=== PATIENT | female | born 1965 | race Caucasian/White ===

== ENCOUNTER 2023-04-25 08:01 | Outpatient (CLI) | payer BC, SELFPAY | END 2023-04-25 08:02 | disposition home or self-care (01) | LOC: NFLDREF 04-28 00:16 | PROVIDERS: PCP Family Medicine; Referring Provider Family Medicine; Visit Provider Family Medicine | DX: Z00.00 Encounter for general adult medical examination without abnormal findings (principal); E66.9 Obesity, unspecified; Z13.6 Encounter for screening for cardiovascular disorders | CPT/HCPCS: 80053; 80061 ==

== ENCOUNTER 2023-05-05 15:17 | Outpatient (CLI) | payer BC, SELFPAY ==
--- NOTE | 2023-05-05 16:00 | CRLHL7_ITS ---
For Patients: As a result of the Century Cures Act, medical imaging exams and procedure reports are released immediately into your electronic medical record. You may view this report before your referring provider. If you have questions, please contact your health care provider. INDICATION: Lung cancer screening. TECHNIQUE: Low-dose lung cancer screening non-contrast CT chest. Dose reduction techniques were used. COMPARISON: CT 06/11/2021 FINDINGS: NODULES: None. LUNGS AND PLEURA: Right lower lobe granuloma. MEDIASTINUM: Calcified mediastinal hilar lymph nodes. CORONARY ARTERY CALCIFICATION: Present. LIMITED UPPER ABDOMEN: Normal. MUSCULOSKELETAL: Normal. IMPRESSION: 1. Negative for lung cancer screening purposes. LUNG-RADS CATEGORY: 1: Negative. Continue annual screening with low-dose CT chest in 12 months. Please note that all CT scans at this facility use dose modulation, iterative reconstruction, and/or weight-based dosing when appropriate to reduce radiation dose to as low as reasonably achievable. Dictated by Lori Hinds MD @ 05/08/2023 6:36:02 PM (Electronically Signed)
== END 2023-05-05 15:18 | disposition home or self-care (01) ==
LOC: CT 15:18
PROVIDERS: PCP Family Medicine; Visit Provider Family Medicine
DX: Z12.2 Encounter for screening for malignant neoplasm of respiratory organs (principal); J44.9 Chronic obstructive pulmonary disease, unspecified; Z72.0 Tobacco use
CPT/HCPCS: 71271

== ENCOUNTER 2023-07-27 14:48 | Outpatient (CLI) | payer BC, SELFPAY ==
--- NOTE | 2023-07-27 15:20 | CRLHL7_ITS ---
For Patients: As a result of the Century Cures Act, medical imaging exams and procedure reports are released immediately into your electronic medical record. You may view this report before your referring provider. If you have questions, please contact your health care provider. BILATERAL SCREENING MAMMOGRAM WITH COMPUTER-AIDED DETECTION TECHNIQUE: CC and MLO views were obtained. These mammographic images have been obtained using full-field digital technique. These mammographic images were interpreted with the benefit of computer-aided detection. COMPARISON FILM: 08/27/19, 06/01/18, 06/04/16. FINDINGS: There are scattered areas of fibroglandular density. IMPRESSION: There is no radiographic evidence for malignancy. ASSESSMENT: BI-RADS Category 1: Negative RECOMMENDATION: Routine screening mammogram in 1 year. A lay language report of this examination will be provided to the patient. Bro Pan M.D. Diagnostic Radiologist [email or web address] SP/Dictated by: Bro Pan MD @ 07/28/2023 11:23:00 AM (Electronically Signed)
== END 2023-07-27 14:49 | disposition home or self-care (01) ==
LOC: MAMMO 14:49
PROVIDERS: PCP Family Medicine; Visit Provider Family Medicine
DX: Z12.31 Encounter for screening mammogram for malignant neoplasm of breast (principal)
CPT/HCPCS: 77067

== ENCOUNTER 2024-05-07 15:37 | Outpatient (CLI) | payer BC, SELFPAY ==
--- NOTE | 2024-05-07 16:00 | CRLHL7_ITS ---
For Patients: As a result of the Century Cures Act, medical imaging exams and procedure reports are released immediately into your electronic medical record. You may view this report before your referring provider. If you have questions, please contact your health care provider. INDICATION: Lung cancer screening. TECHNIQUE: Low-dose lung cancer screening non-contrast CT chest. Dose reduction techniques were used. COMPARISON: CT 05/05/2023 FINDINGS: NODULES: None. LUNGS AND PLEURA: Right lower lobe granuloma. MEDIASTINUM: Nodes. Calcified mediastinal and hilar lymph CORONARY ARTERY CALCIFICATION: Present. LIMITED UPPER ABDOMEN: Normal. MUSCULOSKELETAL: Normal. IMPRESSION: 1. Negative for lung cancer screening purposes. LUNG-RADS CATEGORY: 1: Negative. RADIOLOGIST RECOMMENDATION: Continue annual screening with low-dose CT chest in 12 months. Please note that all CT scans at this facility use dose modulation, iterative reconstruction, and/or weight-based dosing when appropriate to reduce radiation dose to as low as reasonably achievable. Dictated by Lori Hinds MD @ 05/08/2024 10:49:12 AM (Electronically Signed)
== END 2024-05-07 15:38 | disposition home or self-care (01) ==
LOC: CT 15:38
PROVIDERS: PCP Family Medicine; Visit Provider Family Medicine
DX: Z12.2 Encounter for screening for malignant neoplasm of respiratory organs (principal); Z87.891 Personal history of nicotine dependence
CPT/HCPCS: 71271

== ENCOUNTER 2024-09-21 14:45 | Outpatient (CLI) | payer BC, SELFPAY | END 2024-09-21 14:46 | disposition home or self-care (01) | PROVIDERS: PCP Family Medicine; Visit Provider Family Medicine | DX: J44.1 Chronic obstructive pulmonary disease with (acute) exacerbation (principal); J32.9 Chronic sinusitis, unspecified | CPT/HCPCS: 80053 ==

== ENCOUNTER 2025-02-12 07:47 | Outpatient (CLI) | payer BC, SELFPAY ==
--- NOTE | 2025-02-12 08:15 | CRLHL7_ITS ---
For Patients: As a result of the Century Cures Act, medical imaging exams and procedure reports are released immediately into your electronic medical record. You may view this report before your referring provider. If you have questions, please contact your health care provider. INDICATION: BILATERAL SCREENING MAMMOGRAM, ASYMPTOMATIC 59 Y/O FEMALE COMPARISON: 07/27/2023, 08/27/2019, 06/01/2018 TECHNIQUE: Digital mammogram in CC and MLO projections including computer-aided detection (CAD) and tomosynthesis. BREAST COMPOSITION: There are scattered areas of fibroglandular density. FINDINGS: No suspicious findings. ASSESSMENT: BI-RADS 1 Negative RECOMMENDATION: Annual screening mammogram. A lay language report of this examination will be provided to the patient. Dictated by: Brittany Hart MD @ 02/12/2025 11:28:32 (Electronically Signed)
== END 2025-02-12 07:48 | disposition home or self-care (01) ==
LOC: MAMMO 07:48
PROVIDERS: PCP Family Medicine; Visit Provider Family Medicine
DX: Z12.31 Encounter for screening mammogram for malignant neoplasm of breast (principal)
CPT/HCPCS: 77063; 77067

== ENCOUNTER 2025-05-13 16:26 | Outpatient (CLI) | payer BC, SELFPAY ==
--- NOTE | 2025-05-13 16:45 | CRLHL7_ITS ---
For Patients: As a result of the Century Cures Act, medical imaging exams and procedure reports are released immediately into your electronic medical record. You may view this report before your referring provider. If you have questions, please contact your health care provider. INDICATION: Lung cancer screening. History of smoking. High risk patient. TECHNIQUE: Low-dose lung cancer screening non-contrast CT chest. Dose reduction techniques were used. COMPARISON: 05/07/2024 FINDINGS: NODULES: New 6 millimeter nodular opacity in the lateral segment of the middle lobe associated with a band of scarring or atelectasis (series 3 image 111). Unchanged right lower lobe calcified granuloma LUNGS AND PLEURA: Mild emphysema. Mild large airways thickening. MEDIASTINUM: Small calcified mediastinal and right hilar lymph nodes compatible with prior granulomatous disease. CORONARY ARTERY CALCIFICATION: Present. LIMITED UPPER ABDOMEN: Unchanged low-density thickening of left adrenal gland, compatible with hyperplasia. MUSCULOSKELETAL: Normal. IMPRESSION: 1. Lung-RADS category 4A, suspicious. New 6 millimeter nodular opacity in the middle lobe. Note that this may reflect nodular atelectasis or scarring. 2. Management: Recommend three-month follow up LD CT per Lung-RADS guidelines Please note that all CT scans at this facility use dose modulation, iterative reconstruction, and/or weight-based dosing when appropriate to reduce radiation dose to as low as reasonably achievable. Dictated by Christ Kaufman MD @ 05/14/2025 8:24:53 AM (Electronically Signed)
== END 2025-05-13 16:27 | disposition home or self-care (01) ==
PROVIDERS: PCP Family Medicine; Visit Provider Family Medicine
DX: Z12.2 Encounter for screening for malignant neoplasm of respiratory organs (principal); Z87.891 Personal history of nicotine dependence; R91.8 Other nonspecific abnormal finding of lung field; J43.9 Emphysema, unspecified
CPT/HCPCS: 71271